=== PATIENT | male | born 1970 | race Caucasian/White ===

== ENCOUNTER 2017-01-12 02:20 | Emergency (ER) | payer OTHER ==
[~2017-01-12] VITALS: Ht 167.6 cm; Wt 128.0 kg
[2017-01-12 02:25] VITALS: TEMP 36.5; Ht 167.6 cm; Wt 128.0 kg
[2017-01-12] MEDS ORDERED: DiphenhydrAMINE HCL 50 MG/ML VIAL IV STA ×2 (02:30→06:09)
[2017-01-12] MEDS ORDERED: RANITIDINE HCL 50 MG/100 ML D5W IV STA (02:30)
[2017-01-12] MEDS ORDERED: SODIUM CHLORIDE 0.9% 1000ML 1,000 ML IV ONE (02:30)
[2017-01-12] MEDS ORDERED: METHYLPREDNISOLONE 125 MG VIAL IV STA (02:30)
[2017-01-12] MEDS ORDERED: EpINEphrine INJ 1MG/ML AMP 1 MG/ML AMP IM STA (02:30)
[2017-01-12] MEDS ORDERED: LISI-788 PO (04:13)
[2017-01-12] MEDS ORDERED: PRED20TA2 PO (06:10)
[2017-01-12] MEDS ORDERED: EPP3/2 INJ (06:12)
[2017-01-12 06:46] VITALS: BP 144/95; PULSE 100; O2SAT 95
--- NOTE | 2017-01-12 07:32 | EMERGENCY ROOM VISIT NOTE ---
History First contact with patient: 02:27 Chief Complaint: ALLERGIC REACTION Stated Complaint: ALLERGIC TO SHELL FISH Nursing Triage Summary: pt had crab bisque and develoepd redness and hives, took 2 benadryl, little bit difficulty breathing History of Present Illness The patient is a 46 year old male who presents to the Emergency Room with complaints of allergic reaction after eating crab bisque about 2 hours ago. The patient states that he does not have any known allergies, however after he ate the soup he began feeling flushed and warm. This slowly progressed into essentially a full body redness. The patient began having some abdominal cramping and diarrhea. He also states that he feels that breathing is labored. He does not have distinct swelling of his mouth or throat. He did take Benadryl at home which only minimally improved his symptoms. He has not had episodes like this in the past. He rates his discomfort a 9/10. Review of Systems More than 10 systems were reviewed and otherwise negative with the exception of history of present illness. Past Medical/Surgical History No chronic medical disease Family History No pertinent family history Social History Smoking Status: Never Smoker Housing Status: lives with family Occupation Status: employed Current/Historical Medications Scheduled Epinephrine (Epipen 2-Solomon), 1 DOSE INJ DIRECTED Lisinopril/Hctz (Zestoretic 20MG/25MG), 1 TAB PO DAILY Prednisone (Prednisone Tab), 0 PO DAILY Physical Exam Vital Signs Date Time Temp Pulse Resp B/P (MAP) Pulse Ox O2 Delivery O2 Flow Rate FiO2 01/12/17 06:46 100 18 144/95 95 01/12/17 06:17 95 01/12/17 05:07 103 20 149/104 97 Room Air 01/12/17 03:29 103 18 204/89 95 Room Air 01/12/17 02:49 Room Air 01/12/17 02:48 Room Air 01/12/17 02:37 112 01/12/17 02:25 36.5 122 18 179/96 96 Room Air Physical Exam VITALS: Vitals are noted on the nurse's note and reviewed by myself. Vital signs with hypertension and tachycardia GENERAL: White male who appears to be in anaphylaxis. He appears in severe distress. He is able to answer questions appropriately. MOUTH: Mucous membranes moist. Tonsils are not enlarged. Pharynx without erythema, blood, or exudate. Uvula midline and nonedematous. Airway patent. NECK: Supple without nuchal rigidity. No lymphadenopathy. No thyromegaly. Cervical spine is nontender. HEART: Tachycardic rate with regular rhythm LUNGS: Clear to auscultation bilaterally without wheezes, rales or rhonchi. No retractions or accessory muscle use. ABDOMEN: Positive normal bowel sounds x 4. Soft, nontender, without masses or organomegaly. NEURO: Patient was alert and oriented to person place and time. CN II through XII grossly intact. SKIN: The skin was with diffuse urticarial hives and redness throughout essentially the entire body Medical Decision & Procedures Medications Administered Medications (Trade) Dose Ordered Sig/Allyssa Route Start Time Stop Time Status Last Admin Dose Admin Diphenhydramine HCl (Benadryl Inj) 50 mg NOW STAT IV 01/12/17 02:30 01/12/17 02:32 DC 01/12/17 02:44 50 MG Ranitidine HCl (zANTac IV) 50 mg NOW STAT IV 01/12/17 02:30 01/12/17 02:32 DC 01/12/17 02:44 50 MG Methylprednisolone Sodium Succinate (Solu-Medrol IV) 125 mg NOW STAT IV 01/12/17 02:30 01/12/17 02:32 DC 01/12/17 02:44 125 MG Sodium Chloride 1,000 ml @ 999 mls/hr Q1H1M ONCE IV 01/12/17 02:30 01/12/17 03:30 DC 01/12/17 02:44 999 MLS/HR Epinephrine HCl (EpINEphrine INJ 1MG/ML AMP/VIAL) 0.3 mg NOW STAT IM 01/12/17 02:30 01/12/17 02:32 DC 01/12/17 02:43 0.3 MG Diphenhydramine HCl (Benadryl Inj) 25 mg NOW STAT IV 01/12/17 06:09 01/12/17 06:10 DC 01/12/17 06:09 25 MG ED Course Physical exam and history were performed. Nursing notes, EMR, and Medication List were personally reviewed. Patient appears to be experiencing an anaphylactic reaction to crab bisque. The patient was seen immediately upon his arrival to the emergency department because of his symptoms. IV access was established, and the patient was given 50 mg IV Benadryl, 125 mg IV Solu-Medrol, 50 mg IV Zantac, and 0.3 mg IM epinephrine. He was hydrated with 1 L normal saline. He was placed on a quality assurance monitor. The patient was reevaluated multiple times throughout the course of his stay. Roughly 15 minutes after medication administration the patient began to have improvement of his abdominal discomfort. Around 25 minutes afterwards he had improvement of his color, and most of his urticaria had resolved. Within one hour the patient was essentially back to his baseline. The patient was monitored here in the emergency department for greater than 4 hours. I discussed the case with my attending physician, Dr. Carbajal, who are being involved in patient care and decision making. At this time we do feel the patient is stable for discharge home, as he does not appear to have a rebound reaction. The patient was given an additional 25 mg dose of IV Benadryl prior to removal of the IV. He is to continue Benadryl at home and will be given a course of prednisone. I will also give him a prescription for an EpiPen. The patient was certainly invited back to the ER with any new, worsening, or concerning symptoms. He was pleased with plan of care and rated his discomfort a 0/10. Departure. The chart was completed utilizing [employer] Voice Recognition Software. Grammatical errors, random word insertions, pronoun errors, and incomplete sentences are an occasional consequence of this system due to software limitations, ambient noise, and hardware issues. Any formal questions or concerns about the content, text, or information contained within the body of this dictation should be directly addressed to the provider for clarification. . Medical Decision Differential diagnosis: Etiologies such as allergic reaction, anaphylaxis, urticaria, Huff-Tolu syndrome, toxic epidermal necrolysis, erythema multiforme, cellulitis, as well as others were entertained. Blood Pressure Screening Blood pressure disposition: Elevated BP felt to be situational Impression Primary Impression: Anaphylaxis Critical Care I have personally spent greater than 30 minutes of critical care time in the direct management of this patient. This includes bedside care, interpretation of diagnostic studies, and testing, discussion with consultants, patient, and family members, and other required patient management activities. This 30 minutes is in excess of all separately billable procedures. Departure Information Dispostion Home / Self-Care Condition GOOD Prescriptions Epinephrine (EPIPEN 2-SOLOMON) 0.3 Mg Inj 1 DOSE INJ DIRECTED for ALLERGIC REACTION, #1 PKT 1 Refill Prov: Wilbert George PA-C 01/12/17 Prednisone (Prednisone Tab) 20 Mg Tab 0 PO DAILY, #18 TAB 3 DAILY FOR 3 DAYS, THEN 2 DAILY FOR 3 DAYS, THEN 1 DAILY FOR 3 DAYS. Prov: Wilbert George PA-C 01/12/17 Referrals No Doctor, Assigned (PCP) Forms HOME CARE DOCUMENTATION FORM, Work Instructions, Additional Instructions: Patient was seen and evaluated today in the emergency department fo medical care. Return to work on 01/14/2017. Please excuse. IMPORTANT VISIT INFORMATION Patient Instructions My [facility] Additional Instructions You were seen and evaluated today on an emergency basis only. This is not a substitute for, or an effort to provide, complete comprehensive medical care. It is not possible to recognize and treat all injuries or illnesses in a single emergency department visit. For this reason it is recommended that you followup with your primary care physician later this week if symptoms persist. Take prednisone as prescribed Take Benadryl 25-50 mg every 4-6 hours today. Consider [id number] Zantac Use your EpiPen if needed. If you have or use your EpiPen seek immediate medical attention. You are welcome to return to the emergency department anytime with new, worsening, or concerning symptoms. Work Instructions Additional Work Instructions: Patient was seen and evaluated today in the emergency department for medical care. Return to work on 01/14/2017. Please excuse.
== END 2017-01-12 06:47 | disposition home or self-care (01) ==
LOC: C.EDB 02:22 → C.EDA 06:47
DX: T78.02XA Anaphylactic reaction due to shellfish (crustaceans), initial encounter (principal); R10.9 Unspecified abdominal pain; R19.7 Diarrhea, unspecified; Z79.899 Other long term (current) drug therapy